=== PATIENT | female | born 1995 | race Caucasian/White ===

== ENCOUNTER 2017-12-18 15:07 | Emergency (ER) | payer OTHER ==
[~2017-12-18] VITALS: Ht 165.1 cm; Wt 107.2 kg
[~2017-12-18 15:07] MED LIST: Z.0.BCPILL PO
[2017-12-18 15:15] VITALS: BP 137/86; PULSE 79; RESP 16; TEMP 97.8; O2SAT 99
[2017-12-18] MEDS ORDERED: PANT20TA2 PO (15:37)
[2017-12-18] MEDS ORDERED: [UNRECOGNIZED DRUG - REMARK] PO (15:37)
[2017-12-18] MEDS ORDERED: ORPHENADRINE INJ 60 MG/2 ML AMP IM ONE (17:00)
[2017-12-18] MEDS ORDERED: KETOROLAC TROMETHAMINE 60 MG/2 ML (IM) VIAL IM ONE (17:00)
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
[2017-12-18] MEDS ORDERED: ONDANSETRON ODT 4 MG TAB PO ONE (17:15)
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
[2017-12-18] MEDS ORDERED: IBUP1TAB7 PO (18:46)
[2017-12-18] MEDS ORDERED: CYCL10TA PO (18:46)
== END 2017-12-18 18:56 | disposition home or self-care (01) ==
LOC: PHEFT 15:07
DX: M54.41 Lumbago with sciatica, right side (principal); Z88.0 Allergy status to penicillin; V43.52XA Car driver injured in collision with other type car in traffic accident, initial encounter; Y93.9 Activity, unspecified; Y92.9 Unspecified place or not applicable; Y99.9 Unspecified external cause status
CPT/HCPCS: 72131; 84703; 96372; 99284; J1885; J2360